=== PATIENT | female | born 1945 | race Caucasian/White ===

== ENCOUNTER 2016-11-27 10:26 | Emergency (ER) | payer MEDICARE, BC ==
[~2016-11-27] VITALS: Ht 149.9 cm; Wt 64.8 kg
[~2016-11-27 10:26] MED LIST: ASPI-94 PO; CLAR5TAB PO; CLOP75 PO; CYCL1PAK PO; LISI-363 PO; LORT5TAB PO; LORTA5 PO; MONT10TA2 PO; MYCO500; ONDA4TAB7 OR; PRIS100T PO; PROT40TA PO; TRAM50 PO; ZOCO10TA PO; ZYRT10TA12 PO; [UNRECOGNIZED DRUG - CODE] PO
[2016-11-27 10:29] VITALS: BP 207/95; PULSE 60; RESP 18; TEMP 98.4; O2SAT 97
[2016-11-27] MEDS ORDERED: ARMO120T PO (10:52)
[2016-11-27] MEDS ORDERED: PLAV75TA29 PO (10:52)
[2016-11-27] MEDS ORDERED: LISI-515 PO (10:52)
[2016-11-27] MEDS ORDERED: ASPI81TA11 PO (10:52)
[2016-11-27] MEDS ORDERED: CETI-1 PO (10:52)
[2016-11-27] MEDS ORDERED: CYCL1TAB29 PO (10:52)
[2016-11-27] MEDS ORDERED: HYDR-3533 PO (10:52)
[2016-11-27] MEDS ORDERED: ULTR50TA5 PO (10:52)
[2016-11-27] MEDS ORDERED: PROT40TA PO (10:52)
[2016-11-27] MEDS ORDERED: MONT10TA2 PO (10:52)
[2016-11-27] MEDS ORDERED: PRIS100T PO (10:52)
[2016-11-27] MEDS ORDERED: ZOCO20TA PO (10:52)
[2016-11-27] MEDS ORDERED: MYCO500 PO (10:52)
[2016-11-27] MEDS ORDERED: CLAR5TAB PO (10:52)
--- NOTE | 2016-11-27 11:04 | PD ---
HPI Chief Complaint: Fall Time Seen by Provider: 10:54 Travel History International Travel<30 days: No Contact w/Intl Traveler<30days: No Traveled to known affect area: No History of Present Illness HPI The patient was seen and examined in the presence of the nurse. This patient complains of left hip pain. Duration 3 hours. Severity is moderate. It started when she was standing next her horse and the horse moved it's rump and bumped her over and she landed onto her left hip. No head or neck injury or pain. She is an alert or but walks with pain. No alleviating factors. PFSH Past Medical History Asthma: Yes Blood Disorders: No Cancer: No Cardiovascular Problems: Yes High Cholesterol: Yes Cerebrovascular Accident: Yes Endocrine: Yes Gastrointestinal Disorders: Yes (CHRON'S DISEASE) Genitourinary: No Hypertension: Yes Immune Disorder: Yes Implanted Vascular Access Dvce: Yes Musculoskeletal: Yes Neurologic: No Psychiatric: No Reproductive: No Respiratory: Yes Thyroid Disease: Yes Tetanus Vaccination: > 5 Years Influenza Vaccination: Yes Past Surgical History Body Medical Devices: STAPLE IN R ROTATOR CUFF Other Surgery: Yes (LEFT BREAST TUMOR REMOVAL, THYROID SX) Social History Alcohol Use: No Tobacco Use: No Substance Use: No Allergies-Medications (Allergen,Severity, Reaction): Coded Allergies: Contrast Media (Verified Allergy, Severe, Shortness of Breath, 11/27/16) PROBLEMS BREATHING Latex (Verified Allergy, Intermediate, Hives, 11/27/16) Penicillin (Verified Allergy, Intermediate, Hives, 11/27/16) Uncoded Allergies: ADHESIVE TAPE (Allergy, Intermediate, BURN, 09/29/04) Reported Meds & Prescriptions Reported Meds & Active Scripts Active Reported Ultram (Tramadol HCl) 50 Mg Tab 50 Mg PO Q4H PRN [place] Thyroid (Thyroid) 120 Mg Tab 130 Mg PO DAILY Zocor (Simvastatin) 20 Mg Tab 20 Mg PO DAILY Protonix (Pantoprazole Sodium) 40 Mg Tab 40 Mg PO DAILY Cellcept (Mycophenolate Mofetil) 500 Mg Tab 500 Mg PO BID Singulair (Montelukast Sodium) 10 Mg Tab 10 Mg PO HS Lisinopril 20 Mg Tab 20 Mg PO DAILY Lortab (Hydrocodone-Acetaminophen) 5-325 Mg Tab 1 Tab PO Q8HR PRN Pristiq 24 HR (Desvenlafaxine ER 24 HR) 100 Mg Tab 100 Mg PO DAILY Clarinex (Desloratadine) 5 Mg Tab 5 Mg PO DAILY Flexeril (Cyclobenzaprine HCl) 10 Mg Tab 10 Mg PO DIRECTED Plavix (Clopidogrel Bisulfate) 75 Mg Tab 75 Mg PO DAILY Zyrtec (Cetirizine HCl) 10 Mg Tablet 1 Tab PO DAILY Aspirin EC (Aspirin) 81 Mg Tabdr 81 Mg PO DAILY Review of Systems General / Constitutional: No: Fever Eyes: No: Visual changes HENT: No: Headaches Cardiovascular: No: Chest Pain or Discomfort Respiratory: No: Shortness of Breath Gastrointestinal: No: Abdominal Pain Genitourinary: No: Dysuria Musculoskeletal: Positive: Arthralgias, Pain Skin: No Rash Neurologic: No: Weakness Psychiatric: No: Depression Endocrine: No: Polydipsia Hematologic/Lymphatic: No: Easy Bruising Physical Exam Narrative GENERAL: Well-nourished, well-developed patient with left hip pain SKIN: Focused skin assessment reveals no rash and nodules. Skin is Warm and dry. HEAD: Atraumatic. Normocephalic. EYES: Pupils equal and round. No scleral icterus. No injection or drainage. ENT: No nasal bleeding or discharge. Mucous membranes pink and moist. NECK: Trachea midline. No JVD. CARDIOVASCULAR: Regular rate and rhythm. No murmur appreciated. RESPIRATORY: No accessory muscle use. Clear to auscultation. Breath sounds equal bilaterally. GASTROINTESTINAL: Abdomen soft, non-tender, nondistended. Hepatic and splenic margins not palpable. MUSCULOSKELETAL: No obvious deformities. No clubbing. No cyanosis. No edema. There is some tenderness at the left hip and pelvis region. No erythema or bruising. Has pain with range of motion. NEUROLOGICAL: Awake and alert. No obvious cranial nerve deficits. Motor grossly within normal limits. Normal speech. PSYCHIATRIC: Appropriate mood and affect; insight and judgment normal. Data Data Last Documented VS Vital Signs Date Time Temp Pulse Resp B/P Pulse Ox O2 Delivery O2 Flow Rate FiO2 11/27/16 13:07 72 16 227/95 99 Room Air 11/27/16 10:29 98.4 Orders Pelvis, Ap Only (Routine) (11/27/16 ) Femur (Ap & Lat/2vws) (11/27/16 ) Clonidine (Catapres) (11/27/16 13:15) MDM Medical Decision Making Medical Screen Exam Complete: Yes Emergency Medical Condition: Yes Medical Record Reviewed: Yes Differential Diagnosis Hip dislocation, pelvic fracture, femur fracture Narrative Course I have reviewed the patient's electronic medical record. I reviewed her pelvis x-ray which shows no fracture I reviewed her left femur x-rays which show no fracture She is ambulatory. There is arthritic change on her x-rays and we reviewed that. Recommend cane or walker for short term to keep weight off that for a few days She has pain medicine at home Of note I was going to discharge her but her blood pressure is 227 systolic. I gave her dose of clonidine and advised week keep an eye on her for a while and reassess her blood pressure make sure it is improved. Patient wants to go home and adamantly refuses to wait. Diagnosis Primary Impression: Contusion of left hip Qualified Code: S70.02XA - Contusion of left hip, initial encounter Additional Impression: Accelerated hypertension Additional Instructions: Check and record blood pressure daily The patient was advised to follow up with their physician and return if they worsen. Med/Other Pt SpecificInfo: Other Disposition: DISCHARGE HOME Condition: Stable Senthil Fitzgerald MD Nov 27, 2016 11:04
--- NOTE | 2016-11-27 12:08 | RADRPT ---
EXAM DATE/TIME: 11/27/2016 11:22 [facility] COMPARISON: No previous studies available for comparison. INDICATIONS : Left femur pain after being run over by a horse MEDICAL HISTORY : Crohn's disease. SURGICAL HISTORY : Knee repairs ENCOUNTER: Initial ACUITY: 1 day PAIN SCORE: 10/10 LOCATION: Left upper femur FINDINGS: Osseous structures appear intact without evidence for acute bony fracture. Alignment appears anatomic at the hip and knee joints. There is extensive degenerative osteoarthritis involving primarily the m edial and patellofemoral compartments of the left knee. Soft tissues are within normal limits. CONCLUSION: 1. No acute fracture or dislocation. 2. 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 Aroldo Lu MD on November 27, 2016 at 12:04 Board Certified Radiologist. This report was verified electronically.
--- NOTE | 2016-11-27 12:09 | RADRPT ---
EXAM DATE/TIME: 11/27/2016 11:21 [facility] COMPARISON: No previous studies available for comparison. INDICATIONS : Left side pelvic pain after being run over by horse MEDICAL HISTORY : Crohn's disease. SURGICAL HISTORY : Knee repairs ENCOUNTER: Initial ACUITY: 1 day PAIN SCORE: 10/10 LOCATION: Left upper femur FINDINGS: No definite fractures, or dislocations are identified. No definite lytic or sclerotic lesion is seen . Slight osteopenia is seen. The joint spaces are well maintained. CONCLUSION: Slight osteopenia. Darinel Lovell MD on November 27, 2016 at 12:06 Board Certified Radiologist. This report was verified electronically.
[2016-11-27 13:07] VITALS: BP 227/95; PULSE 72; RESP 16; O2SAT 99
[2016-11-27] MEDS ORDERED: cloNIDine HCL 0.2 MG TAB PO ONE (13:15)
== END 2016-11-27 14:10 | disposition home or self-care (01) ==
LOC: PHED 10:26
DX: S70.02XA Contusion of left hip, initial encounter (principal); I10 Essential (primary) hypertension; J45.909 Unspecified asthma, uncomplicated; E78.00 Pure hypercholesterolemia, unspecified; K50.90 Crohn's disease, unspecified, without complications
CPT/HCPCS: 72170; 73552; 99284

== ENCOUNTER 2017-01-20 14:01 | Observation (INO) | payer MEDICARE, BC, OTHER ==
[~2017-01-20] VITALS: Ht 162.6 cm; Wt 65.0 kg
[~2017-01-20 14:01] MED LIST changes: +ARMO120T PO; -ASPI-94 PO; +ASPI81TA11 PO; +CETI-1 PO; -CLOP75 PO; -CYCL1PAK PO; +CYCL1TAB29 PO; +HYDR-3533 PO; -LISI-363 PO; +LISI-515 PO; -LORT5TAB PO; -LORTA5 PO; -MYCO500; +MYCO500 PO; -ONDA4TAB7 OR; +PLAV75TA29 PO; -TRAM50 PO; +ULTR50TA5 PO; -ZOCO10TA PO; +ZOCO20TA PO; -ZYRT10TA12 PO; -[UNRECOGNIZED DRUG - CODE] PO
[2017-01-20 14:15] VITALS: BP 157/73; PULSE 80; RESP 16; TEMP 98.2; O2SAT 97
--- NOTE | 2017-01-20 15:17 | PD ---
HPI Chief Complaint: Psychiatric Symptoms Time Seen by Provider: 14:45 (Nadine Díaz) Time Seen by Provider: 14:31 (Lizz Mera MD) Travel History International Travel<30 days: No Contact w/Intl Traveler<30days: No Traveled to known affect area: No (Nadine Díaz) History of Present Illness HPI 71-year-old female with PMH of SLE, Crohn's, GERD, Graves disease, CVA presents to the ED under Davison Act for psychiatric evaluation. According to Davison act paper work the patients nephew stated that the patient made suicidal statements , stating she was given a take pills to overdose and . The nephew also states that the patient asked him to shoot her. The patient's states that the patient has been very depressed, crying a lot, not taking her medications. On presentation the patient endorses depression, but denies SI. She denies that she made any of the statements attributed to her in the BA. She states that her and nephew are trying to get money from her and this is one of their ploys to "do what they want." She denies history of psychiatric hospitalization, previous suicide attempts. She denies somatic complaints. She does state that her "roughed me up" this week. She states that she would like to make a statement to the police. (Nadine Díaz) PFSH Past Medical History Asthma: Yes Blood Disorders: No Cancer: No Cardiovascular Problems: Yes High Cholesterol: Yes Cerebrovascular Accident: Yes Endocrine: Yes Gastrointestinal Disorders: Yes (CHRON'S DISEASE) Genitourinary: No Hypertension: Yes Immune Disorder: Yes Implanted Vascular Access Dvce: Yes Musculoskeletal: Yes Neurologic: No Psychiatric: No Reproductive: No Respiratory: Yes Thyroid Disease: Yes Menopausal: Yes (Nadine Díaz) Past Surgical History Body Medical Devices: STAPLE IN R ROTATOR CUFF Other Surgery: Yes (LEFT BREAST TUMOR REMOVAL, THYROID SX) (Nadine Díaz) Social History Alcohol Use: No Tobacco Use: No Substance Use: No (Nadine Díaz) Allergies-Medications (Allergen,Severity, Reaction): Coded Allergies: diatrizoate meglumine (Unverified Allergy, Severe, Shortness of Breath, ) PROBLEMS BREATHING gadobenic acid (Unverified Allergy, Severe, Shortness of Breath, 01/20/17) PROBLEMS BREATHING gadodiamide (Unverified Allergy, Severe, Shortness of Breath, 01/20/17) PROBLEMS BREATHING gadoteridol (Unverified Allergy, Severe, Shortness of Breath, 01/20/17) PROBLEMS BREATHING iodixanol (Unverified Allergy, Severe, Shortness of Breath, 01/20/17) PROBLEMS BREATHING iohexol (Unverified Allergy, Severe, Shortness of Breath, 01/20/17) PROBLEMS BREATHING latex (Unverified Allergy, Intermediate, Hives, 01/20/17) penicillin G (Unverified Allergy, Intermediate, Hives, 01/20/17) Uncoded Allergies: ADHESIVE TAPE (Allergy, Intermediate, BURN, 09/29/04) Reported Meds & Prescriptions Reported Meds & Active Scripts Active Macrobid (Nitrofurantoin Monoh/Nitrofur Macro) 100 Mg Cap 100 Mg PO BID 7 Days (Lizz Mera MD) Review of Systems Except as stated in HPI: all other systems reviewed are Neg (Nadine Díaz) Physical Exam Narrative GENERAL: Well-nourished, well-developed thin white female in NAD. PSYCHIATRIC: No hallucinations. SKIN: Focused skin assessment warm/dry. Bruising of the right elbow. HEAD: Normocephalic. EYES: No scleral icterus. No injection or drainage. Proptosis bilaterally. NECK: Supple, trachea midline. No JVD or lymphadenopathy. CARDIOVASCULAR: Regular rate and rhythm without murmurs, gallops, or rubs. RESPIRATORY: Breath sounds clear and equal bilaterally. No accessory muscle use. GASTROINTESTINAL: Abdomen soft, non-tender, nondistended. Active bowel sounds. MUSCULOSKELETAL: No cyanosis, or edema. BACK: Nontender without obvious deformity. No CVA tenderness. (Nadine Díaz) Data Data Last Documented VS Vital Signs Date Time Temp Pulse Resp B/P (MAP) Pulse Ox O2 Delivery O2 Flow Rate FiO2 01/20/17 14:15 98.2 80 16 157/73 (101) 97 Room Air (Lizz Mera MD) Orders Orders Complete Blood Count With Diff (01/20/17 14:37) Comprehensive Metabolic Panel (01/20/17 14:37) Urinalysis - C+S If Indicated (01/20/17 14:37) Psych Screen (01/20/17 14:37) Drug Screen, Random Urine (01/20/17 14:37) Alcohol (Ethanol) (01/20/17 14:37) Salicylates (Aspirin) (01/20/17 14:37) Tylenol (Acetaminophen) (01/20/17 14:37) Urine Culture (01/20/17 14:55) Potassium Chloride (Kcl) (01/20/17 16:30) Nitrofurantoin Monohyd Macrocr (Macrobid (01/20/17 16:30) (Lizz Mera MD) Labs Laboratory Tests Test 01/20/17 14:40 01/20/17 14:55 White Blood Count 6.0 TH/MM3 Red Blood Count 4.46 MIL/MM3 Hemoglobin 11.3 GM/DL Hematocrit 35.0 % Mean Corpuscular Volume 78.5 FL Mean Corpuscular Hemoglobin 25.2 PG Mean Corpuscular Hemoglobin Concent 32.1 % Red Cell Distribution Width 20.9 % Platelet Count 362 TH/MM3 Mean Platelet Volume 6.8 FL Neutrophils (%) (Auto) 49.5 % Lymphocytes (%) (Auto) 40.3 % Monocytes (%) (Auto) 8.4 % Eosinophils (%) (Auto) 1.0 % Basophils (%) (Auto) 0.8 % Neutrophils # (Auto) 3.0 TH/MM3 Lymphocytes # (Auto) 2.4 TH/MM3 Monocytes # (Auto) 0.5 TH/MM3 Eosinophils # (Auto) 0.1 TH/MM3 Basophils # (Auto) 0.0 TH/MM3 CBC Comment DIFF FINAL Differential Comment Blood Urea Nitrogen 13 MG/DL Creatinine 0.62 MG/DL Random Glucose 89 MG/DL Total Protein 7.9 GM/DL Albumin 3.5 GM/DL Calcium Level 10.4 MG/DL Alkaline Phosphatase 78 U/L Aspartate Amino Transf (AST/SGOT) 22 U/L Alanine Aminotransferase (ALT/SGPT) 14 U/L Total Bilirubin 0.3 MG/DL Sodium Level 139 MEQ/L Potassium Level 3.3 MEQ/L Chloride Level 107 MEQ/L Carbon Dioxide Level 24.5 MEQ/L Anion Gap 8 MEQ/L Estimat Glomerular Filtration Rate 95 ML/MIN Salicylates Level LESS THAN 1.7 MG/DL Acetaminophen Level LESS THAN 2.0 MCG/ML Ethyl Alcohol Level LESS THAN 3 MG/DL Urine Color YELLOW Urine Turbidity HAZY Urine pH 5.5 Urine Specific [place] 1.036 Urine Protein 30 mg/dL Urine Glucose (UA) NEG mg/dL Urine Ketones NEG mg/dL Urine Occult Blood SMALL Urine Nitrite NEG Urine Bilirubin NEG Urine Urobilinogen 2.0 MG/DL Urine Leukocyte Esterase LARGE Urine RBC 6 /hpf Urine WBC 13 /hpf Urine Squamous Epithelial Cells 2 /hpf Urine Calcium Oxalate Crystals MOD /hpf Urine Hyaline Casts 1 /lpf Urine Mucus FEW /lpf Microscopic Urinalysis Comment CULTURE INDICATED Urine Opiates Screen NEG Urine Barbiturates Screen NEG Urine Amphetamines Screen NEG Urine Benzodiazepines Screen NEG Urine Cocaine Screen NEG Urine Cannabinoids Screen NEG (Lizz Mera MD) MDM Medical Decision Making Medical Screen Exam Complete: Yes Emergency Medical Condition: Yes Differential Diagnosis Adjustment disorder versus anxiety versus bipolar versus depression versus dementia versus electrolyte disorder versus malingering versus mood disorder versus ODD versus psychosis versus PTSD versus schizophrenia versus schizoaffective disorder versus substance-induced mood disorder versus other Narrative Course 71-year-old female with PMH of SLE, Crohn's, GERD, Graves disease, CVA presents to the ED under Davison Act for psychiatric evaluation. According to Davison act paper work the patients nephew stated that the patient made suicidal statements , stating she was given a take pills to overdose and . The nephew also states that the patient asked him to shoot her. The patient's states that the patient has been very depressed, crying a lot, not taking her medications. On presentation the patient endorses depression, but denies SI. She denies that she made any of the statements attributed to her in the BA. She states that her and nephew are trying to get money from her and this is one of their ploys to "do what they want." She denies history of psychiatric hospitalization, previous suicide attempts. She denies somatic complaints. She does state that her "roughed me up" this week. She states that she would like to make a statement to the police. Vitals reviewed. Physical exam is unremarkable. I'm unsure of the patient's reports are delusions or existing problems. I did call the rn field case manager who came to bedside and states that she will address the situation after the psychiatric evaluation has been completed. No concerning abnormalities of CBC. Potassium 3.3. UA hazy, large leukocyte esterase, extending WBCs. Patient was administered 40 mEq potassium by mouth. She is prescribed Macrobid 100 mg twice a day 7 days, first dose administered in the ED. Patient is medically clear for psychiatric evaluation. Awaiting psychiatric recommendations. (Nadine Díaz) Diagnosis Primary Impression: Hypocalcemia Additional Impression: Urinary tract infection Qualified Codes: N39.0 - Urinary tract infection, site not specified Scripts Nitrofurantoin Monohydrate Macrocrystals (Macrobid) 100 Mg Cap 100 MG PO BID for Infection for 7 Days, #14 CAP 0 Refills Prov: Lizz Mera MD 01/20/17 Nadine Díaz Jan 20, 2017 15:17 Lizz Mera MD Jan 20, 2017 21:36
[2017-01-20 15:46] LABS: BASOPHIL % 0.8 % (0.0-2.0); EOSINOPHIL # 0.1 TH/MM3 (0-0.4); HEMO FLAGS DIFF FINAL; LYMPH % 40.3 % (9.0-44.0); LYMPHOCYTE # 2.4 TH/MM3 (1.0-4.8); MEAN CELL VOLUME 78.5 FL (80.0-100.0); MEAN CORPUSCULAR HEMOGLOBIN 25.2 PG (27.0-34.0); MEAN CORPUSCULAR HGB CONC 32.1 % (32.0-36.0); MONO % 8.4 % (0.0-8.0); NEUT % 49.5 % (16.0-70.0); PLATELET COUNT 362 TH/MM3 (150-450); RED BLOOD COUNT 4.46 MIL/MM3 (4.00-5.30); RED CELL DISTRIBUTION WIDTH 20.9 % (11.6-17.2)
[2017-01-20 16:01] LABS: ALT (GPT) 14 U/L (10-53); ANION GAP 8 MEQ/L (5-15); AST (GOT) 22 U/L (15-37); BICARBONATE 24.5 MEQ/L (21.0-32.0); BLOOD UREA NITROGEN 13 MG/DL (7-18); CHLORIDE 107 MEQ/L (98-107); GLOMERULAR FILTRATION RATE 95 ML/MIN (>89); POTASSIUM 3.3 MEQ/L (3.5-5.1); SODIUM (NA) 139 MEQ/L (136-145)
[2017-01-20 16:03] LABS: ALKALINE PHOSPHATASE 78 U/L (45-117); TOTAL BILIRUBIN ADULT 0.3 MG/DL (0.2-1.0)
[2017-01-20 16:05] LABS: ALCOHOL LESS THAN 3 MG/DL (0-5)
[2017-01-20 16:11] LABS: BLOOD, URINE SMALL (NEG); CALCIUM OXALATE CRYSTALS,URINE MOD /hpf; GLUCOSE,URINE NEG (NEG); HYALINE CAST, URINE 1 /lpf (RARE); KETONE, URINE NEG (NEG); MUCUS URINE FEW /lpf (OCC); NITRITE,URINE NEG (NEG); PH, URINE 5.5 (5.0-8.5); SQUAMOUS EPITHELIAL CELL URINE 2 /hpf (0-5); URINE COLOR YELLOW (YELLW/STRAW)
[2017-01-20 16:13] LABS: COMMENT (UR) CULTURE INDICATED; CULTURE IF INDICATED CULTURE INDICATED
[2017-01-20 16:21] LABS: ACETAMINOPHEN LESS THAN 2.0 MCG/ML (10.0-30.0)
[2017-01-20] MEDS ORDERED: MACR100C2 PO (16:22)
[2017-01-20] MEDS ORDERED: POTASSIUM CHLORIDE 20 MEQ CONTROLLED RELEASE TAB PO ONE (16:30)
[2017-01-20] MEDS ORDERED: NITROFURANTOIN MONOHYD MACROCR 100 MG CAP PO ONE (16:30)
[2017-01-21 10:42] VITALS: BP 143/72; PULSE 72; RESP 20; O2SAT 100
--- NOTE | 2017-01-21 15:18 | PD ---
History of Present Illness Chief Complaint: Psychiatric Symptoms Time Seen by Provider: 15:00 Travel History International Travel<30 Days: No Contact w/Intl Traveler<30days: No Known affected area: No Legal Status Legal Status: Davison Act History of Present Illness: 71-year-old female status post CVA with obvious dementia, suicidal ideation and threats, paranoid delusions, etc. She was placed under a Davison act for making suicidal comments to her and her 's son. She also told hospital staff her was attempting to steal money from her. Upon interview, the patient is not oriented to time, place or date. She is easily agitated and irritable. She does not remember stating that she was suicidal or that her was stealing from her. She is obviously unable to care for herself as she is disoriented and easily confused. She has multiple medical problems which require daily medication. She is reportedly noncompliant with her medicines as well. PFSH Past Medical History Asthma: Yes Blood Disorders: No Cancer: No Cardiovascular Problems: Yes High Cholesterol: Yes Cerebrovascular Accident: Yes Endocrine: Yes Gastrointestinal Disorders: Yes (CHRON'S DISEASE) Genitourinary: No Hypertension: Yes Immune Disorder: Yes Implanted Vascular Access Dvce: Yes Musculoskeletal: Yes Neurologic: No Psychiatric: No Reproductive: No Respiratory: Yes Thyroid Disease: Yes Menopausal: Yes Past Surgical History Body Medical Devices: STAPLE IN R ROTATOR CUFF Other Surgery: Yes (LEFT BREAST TUMOR REMOVAL, THYROID SX) Psychiatric History Psychiatric History Hx Psychiatric Treatment: None known. History of Inpatient Treatment: No Guns or firearms in home: No Social History Hx Alcohol Use: No Hx Tobacco Use: No Hx Substance Use: No Hx of Substance Use Treatment: No Allergies-Medications (Allergen,Severity, Reaction): Coded Allergies: diatrizoate meglumine (Unverified Allergy, Severe, Shortness of Breath, ) PROBLEMS BREATHING gadobenic acid (Unverified Allergy, Severe, Shortness of Breath, 01/20/17) PROBLEMS BREATHING gadodiamide (Unverified Allergy, Severe, Shortness of Breath, 01/20/17) PROBLEMS BREATHING gadoteridol (Unverified Allergy, Severe, Shortness of Breath, 01/20/17) PROBLEMS BREATHING iodixanol (Unverified Allergy, Severe, Shortness of Breath, 01/20/17) PROBLEMS BREATHING iohexol (Unverified Allergy, Severe, Shortness of Breath, 01/20/17) PROBLEMS BREATHING latex (Unverified Allergy, Intermediate, Hives, 01/20/17) penicillin G (Unverified Allergy, Intermediate, Hives, 01/20/17) Uncoded Allergies: ADHESIVE TAPE (Allergy, Intermediate, BURN, 09/29/04) Reported Meds & Prescriptions Reported Meds & Active Scripts Active Macrobid (Nitrofurantoin Monoh/Nitrofur Macro) 100 Mg Cap 100 Mg PO BID 7 Days Review of Systems Except as stated in HPI: all other systems reviewed are Neg Exam Alert: Yes [place]: Person Mood: Agitated Affect: Labile Speech: Illogical Eye Contact: Normal Memory Intact: Immediate Delusions: Yes Delusion Type: Paranoid Insight/Judgement Impaired MDM Medical Decision Making Medical Record Reviewed: Yes Assessment/Plan Patient interviewed at bedside, medical record reviewed and case discussed with nurse, Ritika. Patient obviously suffers from dementia and has suicidality as well as paranoid delusions. She is unable to care for herself and she has a host of medical issues which require ongoing treatment. It appears that her and stepson are also unable to care for her due to her threats against them. She requires psychiatric admission for evaluation and further treatment. Orders Orders Urine Culture (01/20/17 14:55) Potassium Chloride (Kcl) (01/20/17 16:30) Nitrofurantoin Monohyd Macrocr (Macrobid (01/20/17 16:30) Diet Regular Basic (01/21/17 Breakfast) Diet Regular Basic (01/21/17 Lunch) Results Vital Signs Date Time Temp Pulse Resp B/P (MAP) Pulse Ox O2 Delivery O2 Flow Rate FiO2 01/21/17 10:42 72 20 143/72 (95) 100 Date/Time Source Procedure Growth Status 01/20/17 14:55 Urine Clean Catch Urine Culture - Final 50-100,000 CFU/ML MIXED ANSHUL... Complete Diagnosis Primary Impression: Dementia with behavioral disturbance Additional Impression: Alzheimer's dementia with behavioral disturbance Prescriptions Nitrofurantoin Monohydrate Macrocrystals (Macrobid) 100 Mg Cap 100 MG PO BID for Infection for 7 Days, #14 CAP 0 Refills Prov: Lizz Mera MD 01/20/17 Problem Qualifiers Jose Elias Williamson MD Jan 21, 2017 15:18
[2017-01-21 16:56] VITALS: BP 175/84; PULSE 85; RESP 20; O2SAT 99
[2017-01-21 19:00] VITALS: BP 148/79; PULSE 71; RESP 17; O2SAT 100
[2017-01-21] MEDS ORDERED: LORazepam 1 MG TAB PO ONE (21:15)
[2017-01-22 08:15] VITALS: BP 144/75; PULSE 75; RESP 16; O2SAT 97
[2017-01-22] MEDS: NITROFURANTOIN MONOHYD MACROCR 100 MG CAP PO SCH ×2 (09:47→18:10)
[2017-01-22 20:01] VITALS: BP 145/78; PULSE 91; RESP 16; TEMP 98.6; O2SAT 98
--- NOTE | 2017-01-23 04:36 | PD ---
Physical Exam Time Seen by Provider: 00:00 Narrative 71 year old presented to the ED under a Davison Act and medically cleared 56 hours ago, remains in our ED. Please refer to previous provider's documentation for details surrounding the patient's current visit. Data Data Last Documented VS Vital Signs Date Time Temp Pulse Resp B/P (MAP) Pulse Ox O2 Delivery O2 Flow Rate FiO2 01/22/17 20:01 98.6 91 16 145/78 (100) 98 Room Air Orders Orders Complete Blood Count With Diff (01/20/17 14:37) Comprehensive Metabolic Panel (01/20/17 14:37) Urinalysis - C+S If Indicated (01/20/17 14:37) Psych Screen (01/20/17 14:37) Drug Screen, Random Urine (01/20/17 14:37) Alcohol (Ethanol) (01/20/17 14:37) Salicylates (Aspirin) (01/20/17 14:37) Tylenol (Acetaminophen) (01/20/17 14:37) Urine Culture (01/20/17 14:55) Potassium Chloride (Kcl) (01/20/17 16:30) Nitrofurantoin Monohyd Macrocr (Macrobid (01/20/17 16:30) Diet Regular Basic (01/21/17 Breakfast) Diet Regular Basic (01/21/17 Lunch) Diet Regular Basic (01/21/17 Dinner) Lorazepam (Ativan) (01/21/17 21:15) Nitrofurantoin Monohyd Macrocr (Macrobid (01/22/17 09:30) Lorazepam (Ativan) (01/23/17 04:45) Labs Laboratory Tests Test 01/20/17 14:40 01/20/17 14:55 White Blood Count 6.0 TH/MM3 Red Blood Count 4.46 MIL/MM3 Hemoglobin 11.3 GM/DL Hematocrit 35.0 % Mean Corpuscular Volume 78.5 FL Mean Corpuscular Hemoglobin 25.2 PG Mean Corpuscular Hemoglobin Concent 32.1 % Red Cell Distribution Width 20.9 % Platelet Count 362 TH/MM3 Mean Platelet Volume 6.8 FL Neutrophils (%) (Auto) 49.5 % Lymphocytes (%) (Auto) 40.3 % Monocytes (%) (Auto) 8.4 % Eosinophils (%) (Auto) 1.0 % Basophils (%) (Auto) 0.8 % Neutrophils # (Auto) 3.0 TH/MM3 Lymphocytes # (Auto) 2.4 TH/MM3 Monocytes # (Auto) 0.5 TH/MM3 Eosinophils # (Auto) 0.1 TH/MM3 Basophils # (Auto) 0.0 TH/MM3 CBC Comment DIFF FINAL Differential Comment Blood Urea Nitrogen 13 MG/DL Creatinine 0.62 MG/DL Random Glucose 89 MG/DL Total Protein 7.9 GM/DL Albumin 3.5 GM/DL Calcium Level 10.4 MG/DL Alkaline Phosphatase 78 U/L Aspartate Amino Transf (AST/SGOT) 22 U/L Alanine Aminotransferase (ALT/SGPT) 14 U/L Total Bilirubin 0.3 MG/DL Sodium Level 139 MEQ/L Potassium Level 3.3 MEQ/L Chloride Level 107 MEQ/L Carbon Dioxide Level 24.5 MEQ/L Anion Gap 8 MEQ/L Estimat Glomerular Filtration Rate 95 ML/MIN Salicylates Level LESS THAN 1.7 MG/DL Acetaminophen Level LESS THAN 2.0 MCG/ML Ethyl Alcohol Level LESS THAN 3 MG/DL Urine Color YELLOW Urine Turbidity HAZY Urine pH 5.5 Urine Specific [place] 1.036 Urine Protein 30 mg/dL Urine Glucose (UA) NEG mg/dL Urine Ketones NEG mg/dL Urine Occult Blood SMALL Urine Nitrite NEG Urine Bilirubin NEG Urine Urobilinogen 2.0 MG/DL Urine Leukocyte Esterase LARGE Urine RBC 6 /hpf Urine WBC 13 /hpf Urine Squamous Epithelial Cells 2 /hpf Urine Calcium Oxalate Crystals MOD /hpf Urine Hyaline Casts 1 /lpf Urine Mucus FEW /lpf Microscopic Urinalysis Comment CULTURE INDICATED Urine Opiates Screen NEG Urine Barbiturates Screen NEG Urine Amphetamines Screen NEG Urine Benzodiazepines Screen NEG Urine Cocaine Screen NEG Urine Cannabinoids Screen NEG MDM Medical Record Reviewed: Yes Supervised Visit with ALLAN: No Narrative Course Pt remains in our ED under a Davison Act, awaiting psychiatric admission.Per Dr. Williamson's note, the patient needs psychiatric admission. I have spoken with JASON Navas in [facility] who states the patient is not appropriate for the bed available on our psychiatric inpatient unit and the one facility that was attempted yesterday for placement has not yet worked out. I have questioned admitting the patient to psychiatry, but at this point, I am told I cannot do this as there is no available bed. The patient does not meet medical admission requirements. Charge nurse Cinthia and nurse Coordinator Franny are aware of the patient still in our ED. She remains medically cleared. 0440 Pt is agitated; unable to sleep. She is given 1mg Ativan. Diagnosis Primary Impression: Dementia with behavioral disturbance Additional Impression: Alzheimer's dementia with behavioral disturbance Scripts Nitrofurantoin Monohydrate Macrocrystals (Macrobid) 100 Mg Cap 100 MG PO BID for Infection for 7 Days, #14 CAP 0 Refills Prov: Lizz Mera MD 01/20/17 Condition: Stable Leslie Solano Jan 23, 2017 04:35
[2017-01-23] MEDS ORDERED: LORazepam 1 MG TAB PO ONE (04:45)
[2017-01-23 07:25] VITALS: BP 119/61; PULSE 81; RESP 15; TEMP 98.5; O2SAT 97
[2017-01-23] MEDS: NITROFURANTOIN MONOHYD MACROCR 100 MG CAP PO SCH ×2 (09:21→17:36)
[2017-01-23] MEDS ORDERED: MYCO500 PO (09:47)
[2017-01-23] MEDS ORDERED: MONT10TA4 PO (09:47)
[2017-01-23] MEDS ORDERED: MONT10TA2 PO (09:47)
[2017-01-23] MEDS ORDERED: LISI-515 PO (09:47)
[2017-01-23] MEDS ORDERED: CLOP75TA PO (09:47)
[2017-01-23] MEDS ORDERED: SIMV20TA PO (09:47)
[2017-01-23] MEDS ORDERED: ZOCO20TA PO (09:47)
[2017-01-23] MEDS ORDERED: CYCL1TAB29 PO (09:47)
[2017-01-23] MEDS ORDERED: MYCO500T PO (09:47)
[2017-01-23] MEDS ORDERED: CITA20TA4 PO (09:48)
[2017-01-23] MEDS ORDERED: NALOXONE HCL 0.4 MG/ML AMP IV PUSH PRN (11:00)
[2017-01-23] MEDS ORDERED: SODIUM CHLORIDE 0.9% FLUSH 10 ML FLUSH IV FLUSH PRN (11:00)
[2017-01-23 11:36] VITALS: BP 128/68; PULSE 81; RESP 21; TEMP 97.7; O2SAT 98
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
[2017-01-23] MEDS: PRAVASTATIN SOD 40 MG TAB PO SCH (13:45)
[2017-01-23] MEDS: LISINOPRIL 20 MG TAB PO SCH (13:45)
[2017-01-23] MEDS: CLOPIDOGREL 75 MG TAB PO SCH (13:45)
[2017-01-23 14:01] LABS: BICARBONATE 27.1 MEQ/L (21.0-32.0); POTASSIUM 3.9 MEQ/L (3.5-5.1)
[2017-01-23 15:29] VITALS: BP 116/64; PULSE 83; RESP 21; TEMP 98.2; O2SAT 99
[2017-01-23] MEDS: MYCOPHENOLATE MOFETIL 500 MG TAB PO SCH (17:36)
[2017-01-23 20:18] VITALS: BP 116/74; PULSE 83; RESP 18; TEMP 99; O2SAT 97
[2017-01-23] MEDS: SODIUM CHLORIDE 0.9% FLUSH 10 ML FLUSH IV FLUSH SCH (20:56)
[2017-01-23] MEDS: DOCUSATE SODIUM 50 MG/SENNA 8.6 MG TAB PO SCH (20:56)
[2017-01-24 00:14] VITALS: BP 128/67; PULSE 81; RESP 18; TEMP 98.8; O2SAT 97
[2017-01-24 08:15] VITALS: BP 103/55; PULSE 66; RESP 19; TEMP 98.5; O2SAT 100
[2017-01-24] MEDS: NITROFURANTOIN MONOHYD MACROCR 100 MG CAP PO SCH (08:20)
[2017-01-24] MEDS: SODIUM CHLORIDE 0.9% FLUSH 10 ML FLUSH IV FLUSH SCH (08:20)
[2017-01-24] MEDS: MYCOPHENOLATE MOFETIL 500 MG TAB PO SCH (08:20)
[2017-01-24] MEDS: DOCUSATE SODIUM 50 MG/SENNA 8.6 MG TAB PO SCH (08:20)
[2017-01-24] MEDS: CLOPIDOGREL 75 MG TAB PO SCH (08:20)
[2017-01-24] MEDS: PRAVASTATIN SOD 40 MG TAB PO SCH (08:20)
[2017-01-24] MEDS: LISINOPRIL 20 MG TAB PO SCH ×2 (08:20→10:57)
[2017-01-24] MEDS ORDERED: CYANOCOBALAMIN 1000 MCG/ML VIAL IM ONE (09:30)
[2017-01-24 09:41] VITALS: BP 110/65
[2017-01-24] MEDS ORDERED: INFLUENZA VIRUS VACCINE (QUADRIVALENT) 0.5 ML SYR IM ONE (10:00)
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
[2017-01-24 11:54] VITALS: BP 95/51; PULSE 81; RESP 19; TEMP 98.7; O2SAT 99
--- NOTE | 2017-01-24 12:06 | PD.PSY.CON ---
Provisional Diagnosis Admission Date Jan 23, 2017 at 11:02 [place]. Dementia History of Present Illness Service Psychiatry Consult Requested By ED attending Reason for Consult History of behavioral disturbance Primary Care Physician Jelani Stewart D.O. HPI Patient reevaluated by this physician multiple times in the emergency department. She is not felt to be a danger to herself or others. She is felt to be a placement issue as her and son do not feel they can care for her. Patient's primary issue is dementia and this physician has spoken with service line account administrator Tj Win with the conclusion psychiatry has nothing to contribute to this lady through psychiatric hospitalization. She is not felt to be actively hallucinating, paranoid or suicidal. Review of Systems Except as stated in HPI: all other systems reviewed are Neg Past Family Social History Coded Allergies: diatrizoate meglumine (Unverified Allergy, Severe, Shortness of Breath, ) PROBLEMS BREATHING gadobenic acid (Unverified Allergy, Severe, Shortness of Breath, 01/20/17) PROBLEMS BREATHING gadodiamide (Unverified Allergy, Severe, Shortness of Breath, 01/20/17) PROBLEMS BREATHING gadoteridol (Unverified Allergy, Severe, Shortness of Breath, 01/20/17) PROBLEMS BREATHING iodixanol (Unverified Allergy, Severe, Shortness of Breath, 01/20/17) PROBLEMS BREATHING iohexol (Unverified Allergy, Severe, Shortness of Breath, 01/20/17) PROBLEMS BREATHING latex (Unverified Allergy, Intermediate, Hives, 01/20/17) penicillin G (Unverified Allergy, Intermediate, Hives, 01/20/17) Uncoded Allergies: ADHESIVE TAPE (Allergy, Intermediate, BURN, 09/29/04) Active Scripts Nitrofurantoin Monohydrate Macrocrystals (Macrobid) 100 Mg Cap, 100 MG PO BID for Infection for 7 Days, #14 CAP 0 Refills Prov:Lizz Mera MD 01/20/17 Reported Medications Citalopram (Citalopram) 20 Mg Tab, 20 MG PO DAILY for Control Depression, #30 TAB 0 Refills 01/23/17 Simvastatin (Simvastatin) 20 Mg Tab, 20 MG PO DAILY for Cholesterol Management, #30 TAB 0 Refills 01/23/17 Mycophenolate (Mycophenolate) 500 Mg Tab, 500 MG PO BID for Immunosuppression, # 120 TAB 0 Refills 01/23/17 Montelukast (Montelukast) 10 Mg Tab, 10 MG PO HS, #30 TAB 0 Refills 01/23/17 Lisinopril (Lisinopril) 20 Mg Tab, 20 MG PO DAILY, #30 TAB 0 Refills 01/23/17 Cyclobenzaprine (Flexeril) 10 Mg Tab, 10 MG PO DIRECTED for Muscle Spasm, # 90 TAB 0 Refills 01/23/17 Clopidogrel (Clopidogrel) 75 Mg Tab, 75 MG PO DAILY for Blood Clot Prevention, # 30 TAB 0 Refills 01/23/17 Montelukast (Singulair) 10 Mg Tab, 10 MG PO HS, #30 TAB 0 Refills 01/23/17 Mycophenolate (Cellcept) 500 Mg Tab, 500 MG PO BID for Immunosuppression, #120 TAB 0 Refills 01/23/17 Simvastatin (Zocor) 20 Mg Tab, 20 MG PO DAILY for Cholesterol Management, #30 TAB 0 Refills 01/23/17 Discontinued Reported Medications Tramadol (Ultram) 50 Mg Tab, 50 MG PO Q4H Y for PAIN, TAB 0 Refills 11/27/16 Thyroid ([place] Thyroid) 120 Mg Tab, 130 MG PO DAILY for Thyroid Supplement, # 30 TAB 0 Refills 11/27/16 Pantoprazole (Protonix) 40 Mg Tab, 40 MG PO DAILY for Reflux, #30 TAB 0 Refills 11/27/16 Lisinopril (Lisinopril) 20 Mg Tab, 20 MG PO DAILY, #30 TAB 0 Refills 11/27/16 Hydrocodone-Acetaminophen (Lortab) 5-325 Mg Tab, 1 TAB PO Q8HR Y for PAIN, TAB 0 Refills 11/27/16 Desvenlafaxine ER 24 HR (Pristiq 24 HR) 100 Mg Tab, 100 MG PO DAILY, TAB 11/27/16 Desloratadine (Clarinex) 5 Mg Tab, 5 MG PO DAILY for Allergy Management, TAB 0 Refills 11/27/16 Cyclobenzaprine (Flexeril) 10 Mg Tab, 10 MG PO DIRECTED for Muscle Spasm, # 90 TAB 0 Refills 11/27/16 Clopidogrel (Plavix) 75 Mg Tab, 75 MG PO DAILY for Blood Clot Prevention, #30 TAB 0 Refills 11/27/16 Cetirizine HCl (Zyrtec) 10 Mg Tablet, 1 TAB PO DAILY 11/27/[address] (Aspirin EC) 81 Mg Tabdr, 81 MG PO DAILY, TAB 0 Refills 11/27/16 Current Medications Medications (Trade) Dose Ordered Sig/Rey Route Start Time Stop Time Status Last Admin (Macrobid) 100 mg BIDPC PO 01/22/17 09:30 01/24/17 08:20 (NS Flush) 2 ml UNSCH PRN IV FLUSH 01/23/17 11:00 (NS Flush) 2 ml BID IV FLUSH 01/23/17 21:00 01/24/17 08:20 (Narcan Inj) 0.4 mg UNSCH PRN IV PUSH 01/23/17 11:00 (Gissel-Colace) 1 tab BID PO 01/23/17 21:00 (Plavix) 75 mg DAILY PO 01/23/17 13:00 01/24/17 08:20 (Prinivil) 20 mg DAILY PO 01/23/17 13:00 01/24/17 10:57 (Cellcept) 500 mg BID@0600,1800 PO 01/23/17 18:00 01/24/17 08:20 (Pravachol) 40 mg DAILY PO 01/23/17 13:00 01/24/17 08:20 Family History Positive for dementia Social History Has lived with son and . Denies alcoholism or drug abuse Patient's Strengths (min. 2) Verbal and has access to healthcare. Physical Exam Vital Signs Vital Signs Date Time Temp Pulse Resp B/P (MAP) Pulse Ox O2 Delivery O2 Flow Rate FiO2 01/24/17 11:54 98.7 81 19 95/51 (66) 99 01/23/17 07:25 Room Air Lab Results Test 01/23/17 13:13 Blood Urea Nitrogen 10 MG/DL Creatinine 0.77 MG/DL Random Glucose 75 MG/DL Calcium Level 10.2 MG/DL Sodium Level 140 MEQ/L Potassium Level 3.9 MEQ/L Chloride Level 105 MEQ/L Carbon Dioxide Level 27.1 MEQ/L Anion Gap 8 MEQ/L Estimat Glomerular Filtration Rate 74 ML/MIN Vitamin B12 Level 277 PG/ML Thyroid Stimulating Hormone 3rd Gen 3.300 uIU/ML Date/Time Source Procedure Growth Status 9/23/17 14:55 Urine Clean Catch Urine Culture - Final 50-100,000 CFU/ML MIXED ANSHUL... Complete Mental Status Examination Speech: Unremarkable Orientation: Person, Place Memory: Impaired (describe) Thought Process: Circumstantial Thought Content: Other Hallucination Type: None Attention and Concentration: Abnormal Suicidal Ideation: No Previous Suicide Attempts: No Homicidal Ideation: No Previous Homicide Attempts: No Insight: Fair Judgment: Unrealistic Affect: Good Mood: Appropriate Motor Activity: Normal gait Assessment & Plan Problem List: (1) Alzheimer's dementia with behavioral disturbance ICD Codes: G30.8 - Other Alzheimer's disease; F02.81 - Dementia in other diseases classified elsewhere with behavioral disturbance Status: Acute (2) Dementia with behavioral disturbance ICD Codes: F03.91 - Unspecified dementia with behavioral disturbance Status: Acute Assessment & Plan Estimated LOS: days at the present time, this physician has nothing to offer regarding treatment of this patient. She is not felt to meet Davison act criteria or criteria for inpatient psychiatric hospitalization. Jose Elias Williamson MD Jan 24, 2017 12:06
[2017-01-24 13:36] VITALS: BP 132/71; PULSE 81
== END 2017-01-24 17:33 | disposition home or self-care (01) ==
LOC: NEPC 14:01 → NEDA 01-23 11:02 → NEPFCDU 01-23 11:23
PROVIDERS: ADMIT Hospitalist; ATTEND Hospitalist
DX: G30.8 Other Alzheimer's disease (principal); F02.81 Dementia in other diseases classified elsewhere, unspecified severity, with behavioral disturbance; E87.6 Hypokalemia; I10 Essential (primary) hypertension; E83.51 Hypocalcemia; E05.00 Thyrotoxicosis with diffuse goiter without thyrotoxic crisis or storm; M32.9 Systemic lupus erythematosus, unspecified; K50.90 Crohn's disease, unspecified, without complications; J45.909 Unspecified asthma, uncomplicated; N39.0 Urinary tract infection, site not specified; I63.9 Cerebral infarction, unspecified; F32.9 Major depressive disorder, single episode, unspecified; F22 Delusional disorders; E78.00 Pure hypercholesterolemia, unspecified; R45.851 Suicidal ideations; Z86.73 Personal history of transient ischemic attack (TIA), and cerebral infarction without residual deficits; Z85.841 Personal history of malignant neoplasm of brain; Z91.19 Patient's noncompliance with other medical treatment and regimen; Z23 Encounter for immunization
CPT/HCPCS: 80048; 80053; 80307; 81001; 82607; 84443; 85025; 87086; 96372; 99285; G0378; J3420; J7517; Q2038; 90471; 90686; 99284; G0008

== ENCOUNTER 2017-07-07 19:41 | Inpatient (IN) | payer MEDICARE, BC, OTHER ==
[~2017-07-07] VITALS: Ht 162.6 cm; Wt 58.3 kg
[~2017-07-07 19:41] MED LIST changes: -ARMO120T PO; -ASPI81TA11 PO; -CETI-1 PO; +CITA20TA4 PO; -CLAR5TAB PO; +CLOP75TA PO; -CYCL1TAB29 PO; -HYDR-3533 PO; -MONT10TA2 PO; +MONT10TA4 PO; +MYCO500T PO; -PLAV75TA29 PO; -PRIS100T PO; -PROT40TA PO; -ULTR50TA5 PO
[2017-07-07 20:46] VITALS: BP 198/87; PULSE 84; RESP 16; TEMP 98; O2SAT 100
[2017-07-07 21:39] LABS: AUTOMATED NEUTROPHIL # 4.1 TH/MM3 (1.8-7.7); BASOPHIL # 0.1 TH/MM3 (0-0.2); EOSINOPHIL # 0.1 TH/MM3 (0-0.4); HEMATOCRIT 32.1 % (35.0-46.0); LYMPH % 30.9 % (9.0-44.0); LYMPHOCYTE # 2.2 TH/MM3 (1.0-4.8); MEAN CELL VOLUME 73.3 FL (80.0-100.0); MEAN CORPUSCULAR HEMOGLOBIN 22.9 PG (27.0-34.0); MEAN CORPUSCULAR HGB CONC 31.3 % (32.0-36.0); MEAN PLATELET VOLUME 6.8 FL (7.0-11.0); MONO % 8.8 % (0.0-8.0); MONOCYTE # 0.6 TH/MM3 (0-0.9); NEUT % 57.3 % (16.0-70.0); PLATELET COUNT 384 TH/MM3 (150-450); RED BLOOD COUNT 4.37 MIL/MM3 (4.00-5.30); RED CELL DISTRIBUTION WIDTH 16.4 % (11.6-17.2); WHITE BLOOD COUNT 7.1 TH/MM3 (4.0-11.0)
[2017-07-07 21:47] LABS: PROTHROMBIN TIME - PATIENT 10.6 SEC (9.8-11.6)
[2017-07-07 21:51] LABS: ALBUMIN 3.7 GM/DL (3.4-5.0); ALT (GPT) 14 U/L (10-53); AST (GOT) 19 U/L (15-37); BICARBONATE 24.5 MEQ/L (21.0-32.0); BLOOD UREA NITROGEN 14 MG/DL (7-18); CALCIUM 9.8 MG/DL (8.5-10.1); CHLORIDE 106 MEQ/L (98-107); CREATININE 0.75 MG/DL (0.50-1.00); GLOMERULAR FILTRATION RATE 76 ML/MIN (>89); GLUCOSE,RANDOM 92 MG/DL (74-106); SODIUM (NA) 140 MEQ/L (136-145)
[2017-07-07 21:52] LABS: BACTERIA, URINE RARE /hpf; BILIRUBIN, URINE NEG (NEG); BLOOD, URINE NEG (NEG); GLUCOSE,URINE NEG (NEG); KETONE, URINE NEG (NEG); MUCUS URINE MOD /lpf (OCC); NITRITE,URINE NEG (NEG); SQUAMOUS EPITHELIAL CELL URINE 1 /hpf (0-5); URINE COLOR YELLOW (YELLW/STRAW); URINE LEUKOCYTE ESTERASE LARGE (NEG)
[2017-07-07 22:01] LABS: ALKALINE PHOSPHATASE 86 U/L (45-117); TOTAL BILIRUBIN ADULT 0.3 MG/DL (0.2-1.0); TOTAL PROTEIN 8.1 GM/DL (6.4-8.2)
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
[2017-07-08 12:09] VITALS: BP 136/68; PULSE 66; RESP 17; O2SAT 99
[2017-07-08 15:12] VITALS: BP 141/76; PULSE 76; RESP 18; O2SAT 99
[2017-07-09 01:45] VITALS: BP 150/80; PULSE 68; RESP 18; O2SAT 98
[2017-07-09 08:00] VITALS: BP 184/79; PULSE 64; RESP 16; TEMP 97.8; O2SAT 99
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
[2017-07-09] MEDS ORDERED: ALUMINUM/MAGNESIUM/SIMETH 30 ML CUP PO PRN (12:30)
[2017-07-09] MEDS ORDERED: MAGNESIUM HYDROXIDE SUSP 30 ML CUP PO PRN (12:30)
[2017-07-09 14:25] VITALS: BP 166/78; PULSE 70; RESP 20; TEMP 98.1; O2SAT 100
[2017-07-09 18:17] VITALS: BP 130/61; PULSE 78; RESP 16; TEMP 98.2; O2SAT 100
[2017-07-09] MEDS: ACETAMINOPHEN 325 MG TAB PO PRN (22:43)
[2017-07-10 06:00] VITALS: BP 140/65; PULSE 68; RESP 16; TEMP 98.5; O2SAT 100
[2017-07-10] MEDS: ACETAMINOPHEN 325 MG TAB PO PRN ×2 (10:07→20:17)
[2017-07-10] MEDS ORDERED: diphenhydrAMINE HCL 50 MG CAP PO PRN (14:30)
[2017-07-10] MEDS ORDERED: LORazepam 0.5 MG TAB PO PRN (14:30)
[2017-07-10 16:00] VITALS: BP 158/72; PULSE 73; RESP 16; TEMP 97.7; O2SAT 100
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
--- NOTE | 2017-07-10 20:42 | EKG ---
Date Performed: 07/10/2017 Time Performed: 12:25:08 PTAGE: 72 years EKG: Sinus rhythm POSSIBLE LEFT ATRIAL ENLARGEMENT POSSIBLE LEFT VENTRICULAR HYPERTROPHY ABNORMAL ECG PREVIOUS TRACING : 11/12/2007 15.12 Since the previous tracing, no significant change noted DOCTOR: Iram Riley Interpretating Date/Time 07/10/2017 20:40:14
[2017-07-11 05:38] VITALS: BP 132/61; PULSE 59; RESP 18; TEMP 97.8; O2SAT 100
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
[2017-07-11 10:23] LABS: BICARBONATE 26.9 MEQ/L (21.0-32.0); BLOOD UREA NITROGEN 14 MG/DL (7-18); CALCIUM 9.6 MG/DL (8.5-10.1); CHLORIDE 106 MEQ/L (98-107); GLOMERULAR FILTRATION RATE 71 ML/MIN (>89); GLUCOSE,RANDOM 86 MG/DL (74-106); SODIUM (NA) 140 MEQ/L (136-145)
[2017-07-11 10:24] LABS: CHOLESTEROL 178 MG/DL (120-200); TRIGLYCERIDES 78 MG/DL (42-150)
[2017-07-11 10:49] LABS: CHOLESTEROL/ HDL RATIO 2.32 RATIO; HDL CHOLESTEROL 76.5 MG/DL (40.0-60.0); LDL CHOLESTEROL 86 MG/DL (0-99)
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
[2017-07-11 16:37] LABS: HEMOGLOBIN A1C 5.2 % (4.3-6.0)
== END 2017-07-11 13:25 | disposition home or self-care (01) | DRG 882 ==
LOC: NEDAMB 19:41 → NEDA 07-09 12:19 → H250 07-09 14:05
PROVIDERS: ADMIT Student in an Organized Health Care Education/Training Program; ATTEND Student in an Organized Health Care Education/Training Program
DX: F43.24 Adjustment disorder with disturbance of conduct (principal); F03.90 Unspecified dementia, unspecified severity, without behavioral disturbance, psychotic disturbance, mood disturbance, and anxiety; K50.90 Crohn's disease, unspecified, without complications; M32.9 Systemic lupus erythematosus, unspecified; F32.9 Major depressive disorder, single episode, unspecified; J45.909 Unspecified asthma, uncomplicated; I10 Essential (primary) hypertension; Z86.73 Personal history of transient ischemic attack (TIA), and cerebral infarction without residual deficits; Z88.0 Allergy status to penicillin; Z91.040 Latex allergy status; Z91.410 Personal history of adult physical and sexual abuse
CPT/HCPCS: 80048; 80053; 80061; 80307; 81001; 82306; 82607; 83036; 84443; 85025; 85610; 85730; 93005; 99285